=== PATIENT | female | born 1980 | race African-American/Black ===

== ENCOUNTER 2022-03-21 11:28 | Emergency (ER) | payer OTHER ==
[2022-03-21 11:52] VITALS: BP 135/82; RESP 18; TEMP 98.5; BMI 28.1
[2022-03-21] MEDS ORDERED: DEXAMETHASONE SOD PHOSPHATE 10 MG/1 ML VIAL IM ONE (12:48)
[2022-03-21 12:49] VITALS: PULSE 91
[2022-03-21] MEDS ORDERED: DEXAMETHASONE SOD PHOSPHATE 10 MG/1 ML VIAL ONE (12:49)
== END 2022-03-21 13:03 | disposition home or self-care (01) ==
LOC: JER 11:28
PROC: 3E023NZ Introduction of Analgesics, Hypnotics, Sedatives into Muscle, Percutaneous Approach (ICD-10-PCS; principal; 2022-03-21)
DX: B34.9 Viral infection, unspecified (principal)
CPT/HCPCS: 0241U-QW; 87651; 99283-25; J1100